=== PATIENT | female | born 1970 | race Caucasian/White ===

== ENCOUNTER 2017-02-18 13:34 | Emergency (ER) | payer SELFPAY | END 2017-02-18 14:20 | disposition home or self-care (01) | LOC: ER 13:34 | DX: J20.9 Acute bronchitis, unspecified (principal); J42 Unspecified chronic bronchitis; F41.9 Anxiety disorder, unspecified; F32.9 Major depressive disorder, single episode, unspecified; Z90.49 Acquired absence of other specified parts of digestive tract; Z90.89 Acquired absence of other organs; Z98.51 Tubal ligation status; Z79.899 Other long term (current) drug therapy ==

== ENCOUNTER 2017-03-04 18:10 | Emergency (ER) | payer SELFPAY | END 2017-03-04 23:28 | disposition short-term general hospital (02) | LOC: ER 18:10 | DX: J18.9 Pneumonia, unspecified organism (principal); J90 Pleural effusion, not elsewhere classified; F41.9 Anxiety disorder, unspecified; F32.9 Major depressive disorder, single episode, unspecified; Z90.49 Acquired absence of other specified parts of digestive tract; Z98.51 Tubal ligation status; Z90.89 Acquired absence of other organs; Z79.899 Other long term (current) drug therapy | CPT/HCPCS: 36415; 96361; 96365; Q9967 ==